=== PATIENT | female | born 1955 | race Caucasian/White ===

== ENCOUNTER 2018-08-30 06:10 | Day surgery (SDC) | payer OTHER ==
[2018-08-30] MEDS ORDERED: MIDAZOLAM 1 MG/ML 2 ML INJ (09:02)
[2018-08-30] MEDS ORDERED: FENTAnyl 50 MCG/ML VIAL (09:02)
== END 2018-08-30 15:28 | disposition home or self-care (01) ==
LOC: GIL 06:10
DX: Z12.11 Encounter for screening for malignant neoplasm of colon (principal); K64.8 Other hemorrhoids; D12.5 Benign neoplasm of sigmoid colon; K57.30 Diverticulosis of large intestine without perforation or abscess without bleeding
CPT/HCPCS: 45380; 88305